=== PATIENT | female | born 1950 | race Caucasian/White ===

== ENCOUNTER 2018-10-29 08:23 | Inpatient (IN) | payer MEDICARE, BC ==
[2018-10-29] MEDS ORDERED: METHOCARBAMOL 750 MG TAB PO (10:00)
[2018-10-29] MEDS ORDERED: ZOLPIDEM 5 MG TAB PO (10:00)
[2018-10-29 10:30] LABS: ADD MAN DIFF? NO
[2018-10-29 10:32] LABS: BASOPHIL # 0.1 10^3/ul (0.0-0.1); EOSINOPHILS # 0.2 10^3/ul (0.0-0.5); EOSINOPHILS % 2.1 % (0.0-7.0); HEMATOCRIT 38.7 % (37.0-47.0); HEMOGLOBIN 12.8 g/dl (12.0-16.0); LYMPHOCYTES # 1.3 10^3/ul (0.8-2.9); LYMPHOCYTES % 18.1 % (15.0-51.0); MEAN CORPUSCULAR HEMOGLOBIN 31.6 pg (29.0-33.0); MEAN CORPUSCULAR HGB CONC 33.1 g/dl (32.0-37.0); MEAN CORPUSCULAR VOLUME 95.6 fl (82.0-101.0); MEAN PLATELET VOLUME 9.1 fl (7.4-10.4); MONOCYTE # 0.6 10^3/ul (0.3-0.9); MONOCYTES % 7.7 % (0.0-11.0); NEUTROPHILS % 70.8 % (39.0-77.0); PLATELET COUNT 263 10^3/UL (140-415); RED BLOOD COUNT 4.05 10^6/ul (4.20-5.40); RED CELL DISTRIBUTION WIDTH 12.9 % (11.5-14.5)
[2018-10-29 10:32] LABS: WHITE BLOOD COUNT 7.1 10^3/ul (4.8-10.8)
[2018-10-29] MEDS: ALLOPURINOL 300 MG TAB PO (10:48)
[2018-10-29 11:00] LABS: ALANINE AMINOTRANSFERASE 13 IU/L (13-69); ALBUMIN/GLOBULIN RATIO 1.29; ALKALINE PHOSPHATASE 83 IU/L (42-121); ANION GAP 11 (5-13); ASPARTATE AMINO TRANSFERASE 19 IU/L (15-46); BILIRUBIN,INDIRECT 0.1 mg/dl (0-1.1); BILIRUBIN,TOTAL 0.1 mg/dl (0.2-1.3); BLOOD UREA NITROGEN 17 mg/dl (7-20); CALCIUM 9.4 mg/dl (8.4-10.2); CARBON DIOXIDE 28 mmol/L (21-31); CHLORIDE 97 mmol/L (97-110); Estimated GFR > 60 mL/min (>60); GLUCOSE 101 mg/dl (70-220); LACTATE DEHYDROGENASE 366 IU/L (313-618); POTASSIUM 4.3 mmol/L (3.5-5.1); SODIUM 136 mmol/L (135-144); TOTAL PROTEIN 7.1 g/dl (6.1-8.1); URIC ACID 2.4 mg/dl (3.1-7.9)
[2018-10-29] MEDS: NS + KCL 20 MEQ 1,000 ML IV (11:02)
[2018-10-29 11:52] LABS: HEPATITIS B SURFACE ANTIGEN NEGATIVE (NEGATIVE)
[2018-10-29] MEDS ORDERED: ACETAMINOPHEN 325 MG TAB PO (12:00)
[2018-10-29] MEDS ORDERED: DIPHENHYDRAMINE 50 MG INJ IV (12:00)
[2018-10-29] MEDS ORDERED: EPINEPHrine 1 MG INJ IM (12:00)
[2018-10-29 12:09] LABS: HEPATITIS C VIRAL ANTIBODY NEGATIVE (NEGATIVE)
[2018-10-29 12:10] LABS: HEPATITIS B SURFACE ANTIBODY POSITIVE (NEGATIVE)
[2018-10-29] MEDS: ACETAMINOPHEN 500 MG TAB PO ×2 (12:13→19:08)
[2018-10-29] MEDS: FAMOTIDINE 20 MG TAB PO (12:13)
[2018-10-29] MEDS: DIPHENHYDRAMINE 25 MG CAP PO (12:13)
[2018-10-29] MEDS ORDERED: BISACODYL 10 MG SUPP PR (13:00)
[2018-10-29] MEDS ORDERED: LISINOPRIL 20 MG TAB PO (13:00)
[2018-10-29] MEDS: RITUXIMAB IV (13:32)
[2018-10-29] MEDS: SOD CHLORIDE 0.9% IV ×2 (13:32→23:14)
[2018-10-29] MEDS: MEPERIDINE 50 MG INJ IV (19:07)
[2018-10-29] MEDS: ATORVASTATIN 10 MG TAB PO ×2 (21:00→23:46)
[2018-10-29] MEDS: traZODone 100 MG TAB PO (21:00)
[2018-10-29] MEDS: DEXAMETHASONE 4 MG/ML 20 MG, ONDANSETRON INJ 16 MG in SOD CHLORIDE 0.9% 50 ML IVPB (22:34)
[2018-10-29] MEDS: BENDAMUSTINE HCL IV (23:14)
[2018-10-29] MEDS: carBAMAZepine (XR) 200 MG TABSR PO (23:46)
[2018-10-29] MEDS: SOTALOL 80 MG TAB PO (23:47)
[2018-10-29] MEDS: DOCUSATE SODIUM 100 MG CAP PO (23:48)
[2018-10-30] MEDS: NS + KCL 20 MEQ 1,000 ML IV (01:20)
[2018-10-30] MEDS ORDERED: PANTOPRAZOLE (EC) 40 MG TAB PO (06:00)
[2018-10-30] MEDS ORDERED: LEVOTHYROXINE 175 MCG TAB PO (07:00)
[2018-10-30] MEDS ORDERED: POLYETHYLENE GLYCOL 17 GM PACKET PO (09:00)
[2018-10-30] MEDS ORDERED: NON-FORMULARY/PATIENT OWN MED (Esomeprazole Mag Trihydrate (Nexium) 20 MG) PO (09:00)
== END 2018-10-30 01:35 | disposition home or self-care (01) | DRG 847 ==
LOC: MS1 08:23
DX: Z51.11 Encounter for antineoplastic chemotherapy (principal); C82.31 Follicular lymphoma grade IIIa, lymph nodes of head, face, and neck; Z95.0 Presence of cardiac pacemaker; E03.9 Hypothyroidism, unspecified; F34.1 Dysthymic disorder; E78.5 Hyperlipidemia, unspecified; R50.9 Fever, unspecified
CPT/HCPCS: 80053; 83615; 84560; 85025; 86706; 86803; 87081; 87340; J9310